=== PATIENT | female | born 1985 | race Caucasian/White ===

== ENCOUNTER 2016-10-27 17:23 | Emergency (ER) | payer SELFPAY ==
[2016-10-27 17:57] VITALS: TEMP 98.8; BMI 19.7
[2016-10-27 18:19] LABS: LEUKOCYTES/URINE NEG (NEGATIVE); NITRITE/URINE NEG (NEGATIVE); URINE OCCULT BLOOD NEG (NEG/TRACE)
[2016-10-27 18:19] LABS: AUTOMATED BASOPHIL 0.9 % (0-2); AUTOMATED EOSINOPHIL 3.9 % (0-5); AUTOMATED LYMPH 32.8 % (17-44); AUTOMATED MONOCYTE 5.7 % (3-10); AUTOMATED NEUTROPHIL 56.7 % (45-76); MPV 9.1 fL (7.4-10.4)
[2016-10-27 18:23] LABS: AMORPHOUS OCC; RBC/URINE 0-2 (0-5); WBC/URINE 0-2 (0-5)
[2016-10-27 18:28] LABS: BLOOD UREA NITROGEN 16 MG/DL (7-17); CALC CORRECTED 9.2 MG/DL (8.4-10.2); CALCIUM 9.1 MG/DL (8.4-10.2); CALCULATED OSMOLALITY 271 MOs/Kg (270-290); CHLORIDE 107 mEq/L (98-107); GLUCOSE 86 MG/DL (70-99); SODIUM LEVEL 141 mEq/L (137-146); TOTAL PROTEIN 6.5 G/DL (6.3-8.2)
[2016-10-27] MEDS ORDERED: MORPHINE 4 MG/ML INJECTION IV ONE (20:40)
[2016-10-27] MEDS ORDERED: ONDANSETRON HCL 4 MG/2 ML VIAL IV ONE (20:40)
[2016-10-27] MEDS ORDERED: NS 1,000 ML IV ONE (20:40)
--- NOTE | 2016-10-27 20:40 | EDPRACDOC ---
- General Information Chief Complaint: Female Urogenital Problems Stated Complaint: FLANK PAIN Time Seen by Provider: 10/27/16 19:58 Mode Of Arrival: Car Home Medications: Home Medications Hydrocodone Bit/Acetaminophen [[place] 5-325 Tablet] 1 each PO Q4H #10 tab Ibuprofen 600 mg PO TID #20 tablet 10/27/16 Multivitamin [One Daily] 1 tab PO DAILY 10/27/16 Tamsulosin HCl [Flomax] 0.4 mg PO BID #10 cap.er.24h 10/27/16 Allergies/Adverse Reactions: Allergies Allergy/AdvReac Type Severity Reaction Status Date / Time No Known Allergies Allergy Verified 10/07/16 07:26 - History of Present Illness Onset: 2 DAYS HPI: PT PRESENTS TODAY WITH PERSISTENT RIGHT FLANK PAIN. PT WAS SEEN 2 WEEKS AGO AND DX WITH KIDNEY STONE AND RUPTURE OF RIGHT RENAL PELVIS. DR. LARA CONSULTED AT THE TIME AND IT WAS ADVISED THAT PT BE GIVEN FLOMAX AND PAIN MEDICATION AND TO FOLLOW UP. PT DID NOT FOLLOW UP D/T FINANCES. STATES HER PAIN IMPROVED UNTIL LAST NIGHT. STATES THAT PAIN DOES NOT FEEL LIKE THE PREVIOUS KIDNEY STONE , BUT MORE OF AN UNCOMFORTABLE PRESSURE. DENIES FEVER, N/V/D, ABD PAIN, DYSURIA /HEMATURIA. Pain Began: Reports: Spontaneous Pain Location: Reports: Flank Pain Severity: Moderate Pain Quality: Reports: Aching : No Oral Intake: Normal Urinary Output: Normal Modifying Factors: improves with: Nothing Relevant History of: Reports: Urolithiasis Associated Signs and Symptoms: Reports: None ED Past Medical History - History Reviewed Yes Nurses notes reviewed and agree except as marked - Patient Medical History GI/ History: Reports: Kidney Stones Psychological History: Denies: Depression Systemic History: Denies: Cancer Surgical History: Reports: Other (BTL) - Social Medical History Smoking Status: Heavy tobacco smoker (5 or more cigarettes/day or daily pipe/ cigar) EDM Review of Systems - Review of Systems ROS Negative Except as Marked: Yes All systems reviewed and were negative except as marked Constitutional: No Symptoms Reported Respiratory: No Symptoms Reported Cardiovascular: No Symptoms Reported Gastrointestinal: No Symptoms Reported Genitourinary: Flank Pain Neurological: No Symptoms Reported Musculoskeletal: No Symptoms Reported Integumentary: No Symptoms Reported - Physical Exam Constitutional: Alert (Awake), No apparent distress Oriented to: Time, Person, Place Last recorded Vital Signs: Last Vital Signs Temp 98.8 F 10/27/16 17:48 Pulse 71 10/27/16 17:48 Resp 16 10/27/16 17:48 BP 120/59 L 10/27/16 17:48 Pulse Ox 99 10/27/16 17:48 Oxygen Pulse Oxygen Saturation 99 O2 Device Room Air Oxygen Flow Rate Fraction of Inspired Oxygen ( FIO2) - HEENT Head: Normal Eye Exam: Normal Neck: Normal, Denies Pain, Midline - Respiratory/Cardiovascular Respiratory: Normal - CTA Cardiovascular: Normal - GI Auscultation: Normal Palpation: Normal Tenderness: Non tender - Musculoskeletal Back: CVA Tenderness (TO RIGHT; NO BRUISING NOTED) Extremities: Normal - Integumentary Skin: Normal Lymphatics: Normal - Neurologic Cerebellar: Normal Mood Description: Normal Thought: Coherent Perception: Normal - Re-evaluation Re-evaluation 1 Re-evaluation Time: 22:05 PT RESTING. FLUIDS GIVEN AND DR. LARA SAID D/C HOME WITH PAIN MEDICATION AND FLOMAX PO BID AND WILL FOLLOW UP IN OFFICE. - Results 10/27/16 18:01 10/27/16 18:01 WBC 6.3 xk/uL (3.8-10.8) 10/27/16 18:01 RBC 4.14 xM/uL (4.20-5.40) L 10/27/16 18:01 Hgb 12.6 g/dL (12.0-16.0) 10/27/16 18:01 Hct 37.3 % (36-47) 10/27/16 18:01 MCV 90 fL (81-99) 10/27/16 18:01 MCH 30.5 pg (27-32) 10/27/16 18:01 MCHC 33.9 g/dl (33-36) 10/27/16 18:01 RDW 13.0 % (11.5-14.5) 10/27/16 18:01 Plt Count 205 xk/uL (130-400) 10/27/16 18:01 MPV 9.1 fL (7.4-10.4) 10/27/16 18:01 Neut % (Auto) 56.7 % (45-76) 10/27/16 18:01 Lymph % (Auto) 32.8 % (17-44) 10/27/16 18:01 [place] % (Auto) 5.7 % (3-10) 10/27/16 18:01 Eos % (Auto) 3.9 % (0-5) 10/27/16 18:01 Baso % (Auto) 0.9 % (0-2) 10/27/16 18:01 Absolute Neuts (auto) 3.53 xk/uL (1.7-8.2) 10/27/16 18:01 Absolute Lymphs (auto) 2.02 xk/uL (0.65-4.75) 10/27/16 18:01 Sodium 141 mEq/L (137-146) 10/27/16 18:01 Potassium 4.1 mEq/L (3.5-5.1) 10/27/16 18:01 Chloride 107 mEq/L (98-107) 10/27/16 18:01 Carbon Dioxide 24 mMOL/L (22-33) 10/27/16 18:01 Anion Gap 14 mEq/L (8-16) 10/27/16 18:01 BUN 16 MG/DL (7-17) 10/27/16 18:01 Creatinine 0.70 MG/DL (0.52-1.04) 10/27/16 18:01 Estimated GFR (MDRD) > 60 mL/min (>=60) 10/27/16 18:01 Glucose 86 MG/DL (70-99) 10/27/16 18:01 Calculated Osmolality 271 MOs/Kg (270-290) 10/27/16 18:01 Calcium 9.1 MG/DL (8.4-10.2) 10/27/16 18:01 Corrected Calcium 9.2 MG/DL (8.4-10.2) 10/27/16 18:01 Total Bilirubin 0.4 MG/DL (0.2-1.3) 10/27/16 18:01 AST 20 IU/L (14-36) 10/27/16 18:01 ALT 24 IU/L (9-52) 10/27/16 18:01 Alkaline Phosphatase 43 IU/L (38-126) 10/27/16 18:01 Total Protein 6.5 G/DL (6.3-8.2) 10/27/16 18:01 Albumin 3.9 G/DL (3.5-5.0) 10/27/16 18:01 Urine Color Yellow 10/27/16 17:56 Urine Clarity Clear 10/27/16 17:56 Urine pH 6.0 (5.0-8.0) 10/27/16 17:56 Ur Specific [place] 1.015 10/27/16 17:56 Urine Protein Neg (NEG/TRACE) 10/27/16 17:56 Urine Glucose (UA) Neg (NEGATIVE) 10/27/16 17:56 Urine Ketones Neg (NEGATIVE) 10/27/16 17:56 Urine Occult Blood Neg (NEG/TRACE) 10/27/16 17:56 Urine Nitrite Neg (NEGATIVE) 10/27/16 17:56 Urine Bilirubin Neg (NEGATIVE) 10/27/16 17:56 Urine Urobilinogen 0.2 MG/DL (0-1) 10/27/16 17:56 Ur Leukocyte Esterase Neg (NEGATIVE) 10/27/16 17:56 Urine RBC 0-2 (0-5) 10/27/16 17:56 Urine WBC 0-2 (0-5) 10/27/16 17:56 Ur Epithelial Cells 2+ 10/27/16 17:56 Amorphous Sediment Occ 10/27/16 17:56 Urine Mucus Occ (NEG/OCC) 10/27/16 17:56 Urine Test Neg (NEGATIVE) 10/27/16 17:56 Lab Results 10/27/16 10/27/16 10/27/16 18:01 18:01 17:56 WBC 6.3 RBC 4.14 L Hgb 12.6 Hct 37.3 MCV 90 MCH 30.5 MCHC 33.9 RDW 13.0 Plt Count 205 MPV 9.1 Neut % (Auto) 56.7 Lymph % (Auto) 32.8 [place] % (Auto) 5.7 Eos % (Auto) 3.9 Baso % (Auto) 0.9 Absolute Neuts (auto) 3.53 Absolute Lymphs (auto) 2.02 Sodium 141 Potassium 4.1 Chloride 107 Carbon Dioxide 24 Anion Gap 14 BUN 16 Creatinine 0.70 Estimated GFR (MDRD) > 60 Glucose 86 Calculated Osmolality 271 Calcium 9.1 Corrected Calcium 9.2 Total Bilirubin 0.4 AST 20 ALT 24 Alkaline Phosphatase 43 Total Protein 6.5 Albumin 3.9 Urine Color Yellow Urine Clarity Clear Urine pH 6.0 Ur Specific [place] 1.015 Urine Protein Neg Urine Glucose (UA) Neg Urine Ketones Neg Urine Occult Blood Neg Urine Nitrite Neg Urine Bilirubin Neg Urine Urobilinogen 0.2 Ur Leukocyte Esterase Neg Urine RBC 0-2 Urine WBC 0-2 Ur Epithelial Cells 2+ Amorphous Sediment Occ Urine Mucus Occ Urine Test 10/27/16 17:56 WBC RBC Hgb Hct MCV MCH MCHC RDW Plt Count MPV Neut % (Auto) Lymph % (Auto) [place] % (Auto) Eos % (Auto) Baso % (Auto) Absolute Neuts (auto) Absolute Lymphs (auto) Sodium Potassium Chloride Carbon Dioxide Anion Gap BUN Creatinine Estimated GFR (MDRD) Glucose Calculated Osmolality Calcium Corrected Calcium Total Bilirubin AST ALT Alkaline Phosphatase Total Protein Albumin Urine Color Urine Clarity Urine pH Ur Specific [place] Urine Protein Urine Glucose (UA) Urine Ketones Urine Occult Blood Urine Nitrite Urine Bilirubin Urine Urobilinogen Ur Leukocyte Esterase Urine RBC Urine WBC Ur Epithelial Cells Amorphous Sediment Urine Mucus Urine Test Neg - Additional Information DR. LARA CONSULTED AND HE REQUESTED FLUIDS, FLOMAX 0.4 PO BID, KUB AND RENAL U/S , THEN FOLLOW UP IN OFFICE TOMORROW. Decision Time to Discharge: 22:06 - Departure Disposition: Home Condition: Stable Final Diagnosis: Renal colic Instructions: Renal Colic (ED) Education/Counseling Given To: Patient Education/Counseling Given Regarding: Diagnosis, Treatment, Follow Up Referrals: None,No Provider [Primary Care Provider] - One Week Kurt Lara MD [Staff Physician] - One Week Prescriptions: Hydrocodone Bit/Acetaminophen [[place] 5-325 Tablet] 1 each PO Q4H #10 tab Ibuprofen 600 mg PO TID #20 tablet Tamsulosin HCl [Flomax] 0.4 mg PO BID #10 cap.er.24h Additional Instructions: HEATING PADS TO ACHY BACK FOR ADDITIONAL PAIN RELIEF. FOLLOW UP WITH DR. LARA.
--- NOTE | 2016-10-27 21:10 | DIRPT ---
CLINICAL DATA: Right flank pain EXAM: ABDOMEN - 1 VIEW COMPARISON: CT abdomen and pelvis September 29, 2016 FINDINGS: There is moderate stool in the colon. No bowel dilatation or air-fluid level suggesting obstruction. No free air. There are small calcifications in the pelvis, likely phleboliths. There is a a 1 mm calcification either in or overlying the lower pole right kidney. IMPRESSION: 1 mm calcification either in or overlying the lower pole the right kidney. Small phleboliths in pelvis. Bowel gas pattern unremarkable. Electronically Signed By: Holger Lord III, M.D. On: 10/27/2016 21:07
--- NOTE | 2016-10-27 21:57 | DIRPT ---
CLINICAL DATA: 31-year-old female with right flank pain x2 days EXAM: RENAL / URINARY TRACT ULTRASOUND COMPLETE COMPARISON: Radiograph dated 10/27/2016 FINDINGS: Right Kidney: Length: 11 cm. Echogenicity within normal limits. No mass or hydronephrosis visualized. Left Kidney: Length: 10 cm. Echogenicity within normal limits. No mass or hydronephrosis visualized. Bladder: Appears normal for degree of bladder distention. IMPRESSION: Unremarkable renal ultrasound. Electronically Signed By: Andrzej Arita M.D. On: 10/27/2016 21:54
[2016-10-27 22:26] VITALS: BP 121/63; PULSE 69
== END 2016-10-27 22:25 | disposition home or self-care (01) ==
LOC: ED 17:23
DX: N23 Unspecified renal colic (principal)
CPT/HCPCS: 36415; 74000; 76770; 80053; 81001; 81025; 85025; 96361; 96374; 96375; 99283; J2270; J2405